=== PATIENT | male | born 1945 | race Two or more races ===

== ENCOUNTER 2024-04-30 10:01 | Outpatient (OUT) | payer MEDICARE, SELFPAY ==
[2024-04-30 10:54] LABS: Basophils Absolute Auto 0.1 10^3/uL (0.0-0.1); Basophils Percent Auto 0.7 % (0.2-2.0); Eosinophils Absolute Auto 0.1 10^3/uL (0.0-0.7); Eosinophils Percent Auto 1.5 % (0.9-7.0); Hematocrit 41.2 % (42.0-54.0); Hemoglobin 13.4 g/dL (14.0-18.0); Immature Granulocytes Abs Auto 0.01 10^3/uL (0.00-0.03); Immature Granulocytes Pct Auto 0.1 % (0.0-0.5); Lymphocytes Absolute Auto 1.8 10^3/uL (1.2-3.8); Lymphocytes Percent Auto 27.5 % (20.5-60.0); Mean Corpuscular HGB Conc 32.5 g/dL (29.9-35.2); Mean Corpuscular Hemoglobin 28.2 pg (25.9-34.0); Mean Corpuscular Volume 86.7 fL (80.0-94.0); Monocytes Absolute Auto 0.6 10^3/uL (0.3-0.8); Monocytes Percent Auto 8.2 % (1.7-12.0); Neutrophils Absolute Auto 4.1 10^3/uL (1.4-6.5); Platelet Count 380 10^3/uL (150-450); Red Blood Count 4.75 10^6/uL (4.70-6.10); Red Cell Distribution Width 12.7 % (11.0-15.0); White Blood Count 6.7 10^3/uL (4.0-11.0)
[2024-04-30 11:10] LABS: Estimated Average Glucose 163 mg/dL; Glycohemoglobin A1C 7.3 % (4.5-6.2)
[2024-04-30 11:59] LABS: Alanine Aminotransferase 22 U/L (16-63); Albumin Globulin Ratio 1.2; Albumin Level 4.3 g/dL (3.4-5.0); Alkaline Phosphatase 73 U/L (46-116); Anion Gap 9.7; Aspartate Amino Transferase 18 U/L (15-37); BUN Creatinine Ratio 19.2; Calcium 9.4 mg/dL (8.5-10.1); Carbon Dioxide 32.3 mmol/L (21.0-32.0); Chloride 102 mmol/L (98-107); Chol HDL Ratio 2.6; Cholesterol 166 mg/dL (<=200); Estimated GFR (African America >60 (>=60 mL/min/1.73m^2); Estimated GFR (Non-African Ame >60 (>=60 mL/min/1.73m^2); Free T3 2.37 pg/mL (2.18-3.98); Globulin 3.7 g/dL; Glucose 102 mg/dL (74-106); HDL Cholesterol 63 mg/dL (40-60); Sodium 140 mmol/L (136-145); Thyroid Stimulating Hormone 1.103 uIU/mL (0.358-3.740); Triglycerides 138 mg/dL (<=150); VLDL CHOLESTEROL 27.6 mg/dL
[2024-04-30 12:05] LABS: Prostate Specific Antigen Scrn 1.51 ng/mL (<=4.00)
== END 2024-04-30 10:02 | disposition home or self-care (01) ==
LOC: LAB 10:08
PROVIDERS: PCP Family Medicine; Visit Provider Family Medicine
DX: E78.5 Hyperlipidemia, unspecified (principal); I10 Essential (primary) hypertension; E11.65 Type 2 diabetes mellitus with hyperglycemia; Z12.5 Encounter for screening for malignant neoplasm of prostate; D64.9 Anemia, unspecified; Z79.899 Other long term (current) drug therapy
CPT/HCPCS: 36415; 80053; 80061; 83036; 84436; 84443; 84481; 85025; G0103

== ENCOUNTER 2024-07-21 09:17 | Outpatient (OUT) | payer MEDICARE, SELFPAY | END 2024-07-21 09:18 | disposition home or self-care (01) | LOC: PST 09:17 | PROVIDERS: PCP Family Medicine; Visit Provider Surgery | DX: Z01.818 Encounter for other preprocedural examination (principal); Z12.11 Encounter for screening for malignant neoplasm of colon ==

== ENCOUNTER 2024-07-29 06:33 | Day surgery (SDC) | payer MEDICARE, SELFPAY ==
--- NOTE | 2024-07-29 | OP_ITS ---
OPERATION DATE: 07/29/2024 PREOPERATIVE DIAGNOSIS: Colorectal screening. POSTOPERATIVE DIAGNOSIS: Diffuse diverticulosis throughout the colon, moderate. PROCEDURE: Colonoscopy to cecum. SURGEON: Aguila Nash M.D. ANESTHESIA: Monitored anesthesia care. ESTIMATED BLOOD LOSS: Zero. INDICATIONS AND CONSENT: Patient is a 79-year-old male, presents for colorectal screening. Indications, risks, benefits, alternatives of proceeding with colonoscopy were explained extensively to the patient, including the risks of bleeding, colon perforation or anesthetic complications. All of his questions were answered. Informed consent was obtained. PROCEDURE: Patient brought to the operating room, placed in the left lateral decubitus position. Monitored anesthesia care was provided. Rectal exam was performed which showed no masses or blood. The scope was inserted into the anal canal. Under direct visualization was advanced. With the aid of abdominal compression, it was advanced to the cecum where cecal markings were clearly identified. There was noted to be a good prep. Upon withdrawal of the scope, mucosal surfaces were carefully examined. There were no mass lesions or polyps. No inflammatory changes or ulcerations. There was moderate diverticulosis throughout the colon, including the cecum and right colon, without inflammatory changes or scarring. The scope was retroflexed in the anal canal. There was no significant hemorrhoidal disease. Scope was then withdrawn. Patient tolerated procedure well, was sent to recovery room in good condition. Patient should not require further colorectal screening. CC: Ke Salinas M.D. EMILY
--- OUTSIDE RECORDS SUMMARY | 2024-07-29 06:37 | XMS_ITS | CCD ---
Author Organization [facility] Care Team Providers Care Quick Print Operator Name Role Phone Mary Zenon Unavailable Breana Salinsa Primary Care Unavailable Olexa, Zenon Attending Unavailable Olexa, Zenon Admitting Unavailable Olexa, Zenon Attending Unavailable Breana Salinas Primary Care Unavailable Olexa, Zenon Admitting Unavailable Breana Salinas Primary Care Unavailable Olexa, Zenon Admitting Unavailable Olexa, Zenon Attending Unavailable HOY ., DR TOUSSAINT Attending Unavailable HOY ., DR TOUSSAINT Admitting Unavailable HOY ., DR TOUSSAINT Primary Care Unavailable HOY ., DR TOUSSAINT Consulting Unavailable HOY ., DR TOUSSAINT Admitting Unavailable HOY ., DR TOUSSAINT Primary Care Unavailable HOY ., DR TOUSSAINT Consulting Unavailable HOY ., DR TOUSSAINT Attending Unavailable PARKLAguila Attending Unavailable Breana Salinas Referring Unavailable PARKLAguila Attending Unavailable Breana Salinas Referring Unavailable Allergies Allergy Classification Reported Allergen(s) Allergy Type Date of Onset Reaction(s) Facility (1 source) No Known Medication Allergies; Translations: [No Known Medication Allergies] Propensity to adverse reactions (disorder) [facility] Repository Medications Current Medications Medication Drug Class(es) Dates Sig (Normalized) Sig (Original) acetaminophen 325 mg / HYDROcodone bitartrate 5 mg oral tablet (3 sources) Opioid Agonist Start: 05-29-2021 take 1 tablet by mouth every four hours as needed for pain HYDROcodone-Aceta minophen 5-325 MG 1 tablet as needed for pain Orally up to every 4 hrs for 5 days May, Active amLODIPine (3 sources) Dihydropyridine Calcium Channel Kenny amLODIPine Besylate Active atorvastatin (3 sources) HMG-CoA Reductase Inhibitor Atorvastatin Calcium Active glipiZIDE 10 mg oral tablet (3 sources) Sulfonylurea take 1 tablet by mouth once daily 30 minutes before breakfast glipiZIDE 10 MG 1 tablet 30 minutes before breakfast Orally Once a day Active metFORMIN (3 sources) Biguanide metFORMIN HCl Active Problems Active Problems Problem Classification Problem Date Documented Date Episodic/Chronic Deficiency and other anemia (1 source) Anemia, unspecified; Translations: [ANEMIA UNSPECIFIED] Onset: 07-26-2022 Episodic Diabetes mellitus with complications (1 source) Type 2 diabetes mellitus with hyperglycemia; Translations: [TYPE 2 DM W/HYPERGLYCEMIA] Onset: 07-26-2022 Chronic Diabetes mellitus without complication (1 source) Other abnormal glucose; Translations: [OTHER ABNORMAL GLUCOSE] Onset: 07-26-2022 Episodic Disorders of lipid metabolism (4 sources) Hyperlipidemia, unspecified; Translations: [HYPERLIPIDEMIA UNSPECIFIED] Onset: 07-20-2022 Chronic Essential hypertension (1 source) Essential (primary) hypertension; Translations: [ESSENTIAL PRIMARY HYPERTENSION] Onset: 07-26-2022 Chronic Other nervous system disorders (5 sources) Lesion of ulnar nerve, left upper limb; Translations: [Cubital tunnel syndrome on left] Onset: 06-13-2021 Resolved: 07-11-2021 Chronic Other screening for suspected conditions (not mental disorders or infectious disease) (6 sources) Encounter for screening for malignant neoplasm of rectum; Translations: [Encounter for screening for malignant neoplasm of prostate] Onset: 07-21-2022 Episodic Unclassified (1 source) G56.22 - Lesion of ulnar nerve, left upper limb; Translations: [G56.22 - Lesion of ulnar nerve, left upper limb] Onset: 05-31-2021 Unclassified (1 source) Z01.812 - Encounter for preprocedural laboratory examination; Translations: [Z01.812 - Encounter for preprocedural laboratory examination] Onset: 05-29-2021 Past or Other Problems Problem Classification Problem Date Documented Date Episodic/Chronic Other nervous system disorders (1 source) Anesthesia of skin; Translations: [R20.0 - Anesthesia of skin] Onset: 05-31-2021 Episodic Other nervous system disorders (1 source) Paresthesia of skin; Translations: [R20.2 - Paresthesia of skin] Onset: 05-31-2021 Episodic Residual codes; unclassified (3 sources) Other specified postprocedural states Onset: 05-29-2021 Resolved: 07-11-2021 Episodic Results Test Name Value Interpretation Reference Range Facility Ambulatory Visit Summaryon 0 07-14-2024 Ambulatory Visit Summary Ambulatory Visit Summary CHARANJIT RUSSELL :1945 Visit Date:07/14/2024 Ambulatory Visit Instructions Your Diagnosis Screening for malignant neoplasm of colon Your Care Team Attending Physician - MICHELLE PITT, Aguila Acuña Primary Care Physician - Breana Salinas MD Referring Physician - Breana Salinas MD This Is Your Medications List Contact prescribing physician if questions or concerns amlodipine (amLODIPine 5 mg Tab) aspirin (aspirin 81 mg Chew Tab) atorvastatin (atorvastatin 10 mg Tab) ergocalciferol (Vitamin D2 2000 intl units oral capsule) glipiZIDE (glipiZIDE 10 mg Tab) lisinopril (lisinopril 20 mg Tab) metformin (metformin 500 mg Tab) pioglitazone (Actos 30 mg Tab) Procedures Performed Colonoscopy (07/2010), Colonoscopy, Cubital tunnel release. Discharge Vitals Heart Rate (Peripheral) 64 Respiratory Rate 16 Blood Pressure 164/69 Height 162 cm Height 64 in Weight 69.7 kg Weight 153.662 lb BMI 26.56 Medications What How Much When Instructions Unchanged amlodipine (amLODIPine 5 mg Tab) 1 Tablets By Mouth 2 times a day Contact prescribing physician if questions or concerns Unchanged aspirin (aspirin 81 mg Chew Tab) 1 Tablets Chewed Every day Contact prescribing physician if questions or concerns Unchanged atorvastatin (atorvastatin 10 mg Tab) 1 Tablets By Mouth Every day Contact prescribing physician if questions or concerns Unchanged ergocalciferol (Vitamin D2 2000 intl units oral capsule) 1 Capsules By Mouth Every day Contact prescribing physician if questions or concerns Unchanged glipiZIDE (glipiZIDE 10 mg Tab) 1 Tablets By Mouth Every day Contact prescribing physician if questions or concerns Unchanged lisinopril (lisinopril 20 mg Tab) 1 Tablets By Mouth Every day Contact prescribing physician if questions or concerns Unchanged metformin (metformin 500 mg Tab) 1 Tablets By Mouth 2 times a day Contact prescribing physician if questions or concerns Unchanged pioglitazone (Actos 30 mg Tab) 1 Tablets By Mouth Every day Contact prescribing physician if questions or concerns Allergies No Known Allergies No Known Medication Allergies Problems Ongoing - Any problem that you are currently receiving treatment for. Anemia BMI 26.0-26.9,adult Diabetes Essential hypertension History of colon polyps History of nephrolithiasis Hyperlipidemia Overweight Screening for malignant neoplasm of colon TIA (transient ischemic attack) Patient Survey You may receive a survey via text or e-mail asking about your office visit. Please share your experience with us by completing your survey. We appreciate your feedback and thank you for choosing us for your care. [facility] Ambulatory Visit Summary Ambulatory Visit Summary CHARANJIT RUSSELL :1945 Visit Date:07/14/2024 Ambulatory Visit Instructions Your Care Team Attending Physician - MICHELLE PITT, Aguila Acuña Primary Care Physician - Breana Salinas MD Referring Physician - Breana Salinas MD This Is Your Medications List Contact prescribing physician if questions or concerns amlodipine (amLODIPine 5 mg Tab) aspirin (aspirin 81 mg Chew Tab) atorvastatin (atorvastatin 10 mg Tab) ergocalciferol (Vitamin D2 2000 intl units oral capsule) glipiZIDE (glipiZIDE 10 mg Tab) lisinopril (lisinopril 20 mg Tab) metformin (metformin 500 mg Tab) pioglitazone (Actos 30 mg Tab) Procedures Performed Colonoscopy (07/2010), Colonoscopy, Cubital tunnel release. Discharge Vitals Heart Rate (Peripheral) 64 Respiratory Rate 16 Blood Pressure 164/69 Height 162 cm Height 64 in Weight 69.7 kg Weight 153.662 lb BMI 26.56 Medications What How Much When Instructions Unchanged amlodipine (amLODIPine 5 mg Tab) 1 Tablets By Mouth 2 times a day Contact prescribing physician if questions or concerns Unchanged aspirin (aspirin 81 mg Chew Tab) 1 Tablets Chewed Every day Contact prescribing physician if questions or concerns Unchanged atorvastatin (atorvastatin 10 mg Tab) 1 Tablets By Mouth Every day Contact prescribing physician if questions or concerns Unchanged ergocalciferol (Vitamin D2 2000 intl units oral capsule) 1 Capsules By Mouth Every day Contact prescribing physician if questions or concerns Unchanged glipiZIDE (glipiZIDE 10 mg Tab) 1 Tablets By Mouth Every day Contact prescribing physician if questions or concerns Unchanged lisinopril (lisinopril 20 mg Tab) 1 Tablets By Mouth Every day Contact prescribing physician if questions or concerns Unchanged metformin (metformin 500 mg Tab) 1 Tablets By Mouth 2 times a day Contact prescribing physician if questions or concerns Unchanged pioglitazone (Actos 30 mg Tab) 1 Tablets By Mouth Every day Contact prescribing physician if questions or concerns Allergies No Known Allergies No Known Medication Allergies Problems Ongoing - Any problem that you are currently receiving treatment for. Anemia BMI 26.0-26.9,adult Diabetes Essential hypertension History of colon polyps History of nephrolithiasis Hyperlipidemia Overweight TIA (transient ischemic attack) Patient Survey You may receive a survey via text or e-mail asking about your office visit. Please share your experience with us by completing your survey. We appreciate your feedback and thank you for choosing us for your care. Normal [facility] OCC BLD IMMUNO SCREENon 05-0 OCCULT BLOOD Negative Normal NEGATIVE [facility] Comment on above: Performed By: #### O BSCRN #### [facility] [address] [place] [address] Dr. Gita Buchanan CBC AUTO DIFFon 07-20-2022 BASO # 0.1 103/ul Normal 0.0-0.1 [facility] Comment on above: Performed By: #### C BC #### [facility] [address] [place] [address] Dr. Gita Buchanan Basophils/100 WBC (Bld) 0.7 % Normal 0.2-2.0 [facility] Comment on above: Performed By: #### C BC #### [facility] [address] [place] [address] Dr. Gita Buchanan EO # 0.1 103/ul Normal 0.0-0.7 [facility] Comment on above: Performed By: #### C BC #### [facility] [address] [place] [address] Dr. Gita Buchanan Eosinophils/100 WBC (Bld) 1.6 % Normal 0.9-7.0 [facility] Comment on above: Performed By: #### C BC #### [facility] [address] [place] [address] Dr. Gita Buchanan Erythrocyte distribution width (RBC) [Ratio] 12.7 % Normal 11.0-15.0 [facility] Comment on above: Performed By: #### C BC #### [facility] [address] [place] [address] Dr. Gita Buchanan Hematocrit (Bld) [Volume fraction] 41.1 % Critically low 42.0-54.0 [facility] Comment on above: Performed By: #### C BC #### [facility] [address] [place] [address] Dr. Gita Buchanan Hemoglobin (Bld) [Mass/Vol] 13.3 g/dL Critically low 14.0-18.0 [facility] Comment on above: Performed By: #### C BC #### [facility] [address] [place] [address] Dr. Gita Buchanan IG # 0.01 10e3/ul Normal 0.00-0.03 [facility] Comment on above: Performed By: #### C BC #### [facility] [address] [place] [address] Dr. Gita Buchanan IG % 0.1 % Normal 0.0-0.5 [facility] Comment on above: Performed By: #### C BC #### [facility] [address] [place] [address] Dr. Gita Buchanan LYMPH # 1.6 103/ul Normal 1.2-3.8 [facility] Comment on above: Performed By: #### C BC #### [facility] [address] [place] [address] Dr. Gita Buchanan Lymphocytes/100 WBC (Bld) 23.9 % Normal 20.5-60.0 [facility] Comment on above: Performed By: #### C BC #### [facility] [address] [place] [address] Dr. Gita Buchanan MANUAL DIFF REQ NO Normal [facility] Comment on above: Performed By: #### C BC #### [facility] [address] [place] [address] Dr. Gita Buchanan MCH (RBC) [Entitic mass] 27.4 pg Normal 25.9-34.0 [facility] Comment on above: Performed By: #### C BC #### [facility] [address] [place] [address] Dr. Gita Buchanan MCHC (RBC) [Mass/Vol] 32.4 g/dL Normal 29.9-35.2 [facility] Comment on above: Performed By: #### C BC #### [facility] [address] [place], [place] [id number] Dr. Gita Buchanan MCV (RBC) [Entitic vol] 84.7 fL Normal 80.0-94.0 [facility] Comment on above: Performed By: #### C BC #### [facility] [address] [place] [address] Dr. Gita Buchanan MONO # 0.6 103/ul Normal 0.3-0.8 [facility] Comment on above: Performed By: #### C BC #### [facility] [address] [place] [address] Dr. Gita Buchanan Monocytes/100 WBC (Bld) 9.5 % Normal 1.7-12.0 [facility] Comment on above: Performed By: #### C BC #### [facility] [address] [place] [address] Dr. Gita Buchanan NEUT # 4.3 103/ul Normal 1.4-6.5 [facility] Comment on above: Performed By: #### C BC #### [facility] [address] [place] [address] Dr. Gita Buchanan Neutrophils/100 WBC (Bld) 64.2 % Normal 43.0-75.0 [facility] Comment on above: Performed By: #### C BC #### [facility] [address] [place] [address] Dr. Gita Buchanan Platelet mean volume (Bld) [Entitic vol] 9.0 fL Critically low 9.5-13.5 [facility] Comment on above: Performed By: #### C BC #### [facility] [address] [place] [address] Dr. Gita Buchanan PLT 285 103/ul Normal 150-450 [facility] Comment on above: Performed By: #### C BC #### [facility] [address] [place] [address] Dr. Gita Buchanan RBC 4.85 106/ul Normal 4.70-6.10 [facility] Comment on above: Performed By: #### C BC #### [facility] [address] [place] [address] Dr. Gita Buchanan WBC 6.8 103/ul Normal 4.0-11.0 [facility] Comment on above: Performed By: #### C BC #### [facility] [address] [place] [address] Dr. Gita Buchanan FREE THYROXINE INDEX T7on FTI 2.64 Normal 1.30-4.50 [facility] Comment on above: Performed By: #### L IPID, URIC, T7, TSH, CMP #### [facility] [address] [address] [address] Gita Buchanan T3U 33.0 % Normal 33.0-40.0 [facility] Comment on above: Performed By: #### L IPID, URIC, T7, TSH, CMP #### [facility] [address] [place] [address] Dr. Gita Buchanan T4 [Mass/Vol] 8.00 ug/dL Normal 4.50-12.10 [facility] Comment on above: Performed By: #### L IPID, URIC, T7, TSH, CMP #### [facility] [address] [place] [address] Dr. Gita Buchanan GLYCOHEMOGLOBIN A1Con 2022 ADA RECOMMENDATION SEE BELOW Normal [facility] Comment on above: Result Comment: ADA RECOMMENDED LIMIT 4.0 - 6.0 ADA THERAPEUTIC TARGET < 7.0 ACTION SUGGESTED > 7.0 Performed By: #### A 1C #### [facility] [address] [place] [address] Dr. Gita Buchanan Glucose [Mass/Vol] 169 mg/dL Normal [facility] Comment on above: Performed By: #### A 1C #### [facility] [address] [place] [address] Dr. Gita Buchanan HbA1c (Bld) [Mass fraction] 7.5 % Critically high 4.5-6.2 [facility] Comment on above: Performed By: #### A 1C #### [facility] [address] [place] [address] Dr. Gita Buchanan LIPID PROFILEon 07-20-2022 CHOL-HDL RATIO NORM SEE BELOW Normal [facility] Comment on above: Result Comment: 3.3 - 4.4 LOW RISK 4.4 - 7.1 AVERAGE RISK 7.1 - 11.0 MODERATE RISK >11.0 HIGH RISK Performed By: #### L IPID, URIC, T7, TSH, CMP #### [facility] [address] [address] [address] Gita Buchanan Cholesterol [Mass/Vol] 178 mg/dL Normal <=200 [facility] Comment on above: Performed By: #### L IPID, URIC, T7, TSH, CMP #### [facility] [address] [address] [address] Gita Buchanan Cholesterol in HDL [Mass/Vol] 62 mg/dL Critically high 40-60 [facility] Comment on above: Performed By: #### L IPID, URIC, T7, TSH, CMP #### [facility] [address] [place] [address] Dr. Gita Buchanan Cholesterol in LDL [Mass/Vol] 93.0 mg/dL Normal [facility] Comment on above: Performed By: #### L IPID, URIC, T7, TSH, CMP #### [facility] [address] [address] [address] Gita Buchanan Cholesterol.total/Cho lesterol in HDL [Mass ratio] 2.9 {ratio} Normal [facility] Comment on above: Performed By: #### L IPID, URIC, T7, TSH, CMP #### [facility] [address] [address] [address] Gita Buchanan HDL NORMAL > or = 60 mg/dl - LOW CARDIOVASCULAR RISK <40 mg/dl - HIGH CARDIOVASCULAR RISK Normal [facility] Comment on above: Performed By: #### L IPID, URIC, T7, TSH, CMP #### [facility] [address] [place] [address] Dr. Gita Buchanan LDL CALC NORMAL SEE BELOW Normal [facility] Comment on above: Result Comment: <100 mg/dl OPTIMAL 100 - 129 mg/dl NEAR OR ABOVE OPTIMAL 130 - 159 mg/dl BORDERLINE HIGH 160 - 189 mg/dl HIGH >190 mg/dl VERY HIGH Performed By: #### L IPID, URIC, T7, TSH, CMP #### [facility] [address] [place] [address] Dr. Gita Buchanan Triglyceride [Mass/Vol] 115 mg/dL Normal <=150 [facility] Comment on above: Performed By: #### L IPID, URIC, T7, TSH, CMP #### [facility] [address] [place] [address] Dr. Gita Buchanan VLDL CALC 23.0 mg/dL Normal [facility] Comment on above: Performed By: #### L IPID, URIC, T7, TSH, CMP #### [facility] [address] [place] [address] Dr. Gita Buchanan PROF 14(COMP METB)on 023 Albumin [Mass/Vol] 4.2 g/dL Normal 3.4-5.0 [facility] Comment on above: Performed By: #### L IPID, URIC, T7, TSH, CMP #### [facility] [address] [place] [address] Dr. Gita Buchanan Albumin/Globulin [Mass ratio] 1.1 {ratio} Normal [facility] Comment on above: Performed By: #### L IPID, URIC, T7, TSH, CMP #### [facility] [address] [place] [address] Dr. Gita Buchanan ALP [Catalytic activity/Vol] 90 U/L Normal 46-116 [facility] Comment on above: Performed By: #### L IPID, URIC, T7, TSH, CMP #### [facility] [address] [place] [address] Dr. Gita Buchanan ALT [Catalytic activity/Vol] 22 U/L Normal 16-63 [facility] Comment on above: Performed By: #### L IPID, URIC, T7, TSH, CMP #### [facility] [address] [place] [address] Dr. Gita Buchanan Anion gap [Moles/Vol] 15.3 mmol/L Normal [facility] Comment on above: Performed By: #### L IPID, URIC, T7, TSH, CMP #### [facility] [address] [address] [address] Gita Buchanan AST [Catalytic activity/Vol] 17 U/L Normal 15-37 [facility] Comment on above: Performed By: #### L IPID, URIC, T7, TSH, CMP #### [facility] [address] [place] [address] Dr. Gita Buchanan Bilirubin [Mass/Vol] 1.2 mg/dL Critically high 0.2-1.0 [facility] Comment on above: Performed By: #### L IPID, URIC, T7, TSH, CMP #### [facility] [address] [place] [address] Dr. Gita Buchanan Calcium [Mass/Vol] 9.9 mg/dL Normal 8.5-10.1 [facility] Comment on above: Performed By: #### L IPID, URIC, T7, TSH, CMP #### [facility] [address] [place] [address] Dr. Gita Buhcanan Chloride [Moles/Vol] 102 mmol/L Normal 98-107 [facility] Comment on above: Performed By: #### L IPID, URIC, T7, TSH, CMP #### [facility] [address] [place] [address] Dr. Gita Buchanan CO2 [Moles/Vol] 27.8 mmol/L Normal 21.0-32.0 [facility] Comment on above: Performed By: #### L IPID, URIC, T7, TSH, CMP #### [facility] [address] [place] [address] Dr. Gita Buchanan Creatinine [Mass/Vol] 0.72 mg/dL Normal 0.70-1.30 [facility] Comment on above: Performed By: #### L IPID, URIC, T7, TSH, CMP #### [facility] [address] [place] [address] Dr. Gita Buchanan EGFR-AF ALGERIAN >60 Normal >=60 [facility] Comment on above: Performed By: #### L IPID, URIC, T7, TSH, CMP #### [facility] [address] [place] [address] Dr. Gita Buchanan EGFR-NON AF ALGERIAN >60 Normal >=60 [facility] Comment on above: Performed By: #### L IPID, URIC, T7, TSH, CMP #### [facility] [address] [address] [address] Gita Buchanan Globulin (S) [Mass/Vol] 3.7 g/dL Normal [facility] Comment on above: Performed By: #### L IPID, URIC, T7, TSH, CMP #### [facility] [address] [address] [address] Gita Buchanan Glucose [Mass/Vol] 94 mg/dL Normal 74-106 [facility] Comment on above: Performed By: #### L IPID, URIC, T7, TSH, CMP #### [facility] [address] [place] [address] Dr. Gita Buchanan Potassium [Moles/Vol] 4.1 mmol/L Normal 3.5-5.1 [facility] Comment on above: Performed By: #### L IPID, URIC, T7, TSH, CMP #### [facility] [address] [place] [address] Dr. Gita Buchanan Protein [Mass/Vol] 7.9 g/dL Normal 6.4-8.2 [facility] Comment on above: Performed By: #### L IPID, URIC, T7, TSH, CMP #### [facility] [address] [place] [address] Dr. Gita Buchanan Sodium [Moles/Vol] 141 mmol/L Normal 136-145 [facility] Comment on above: Performed By: #### L IPID, URIC, T7, TSH, CMP #### [facility] [address] [place] [address] Dr. Gita Buchanan Urea nitrogen [Mass/Vol] 17.0 mg/dL Normal 7.0-18.0 [facility] Comment on above: Performed By: #### L IPID, URIC, T7, TSH, CMP #### [facility] [address] [place] [address] Dr. Gita Buchanan Urea nitrogen/Creatinine [Mass ratio] 23.6 mg/mg Normal [facility] Comment on above: Performed By: #### L IPID, URIC, T7, TSH, CMP #### [facility] [address] [address] [address] Gita Buchanan TSHon 07-20-2022 TSH 1.591 uIU/mL Normal 0.358-3.740 [facility] Comment on above: Performed By: #### L IPID, URIC, T7, TSH, CMP #### [facility] [address] [address] [address] Gita Buchanan URIC ACID SERUMon 07-20-2022 Urate [Mass/Vol] 4.6 mg/dL Normal 3.5-7.2 [facility] Comment on above: Performed By: #### L IPID, URIC, T7, TSH, CMP #### [facility] [address] [address] [address] Gita Buchanan Glucose Poct Glucometerson 0 05-31-2021 Commemt1 Glu2: Cleaned Meter Normal [facility] Comment on above: Result Comment: PERF ORMED BY: [facility] [address] [place] [address] PATHOLOGIST [employer] GRINDER TEQUILA CARTAGENA M.D. Performed By: #### G LULS #### Point of Care testing , Glucose [Mass/Vol] 120 mg/dL Normal [facility] Comment on above: Result Comment: [facility] Glucose Reference Range is dependent on time and content of last meal. Glucose of more than 200 mg/dL in a nonstressed, ambulatory subject supports the diagnosis of Diabetes Mellitus. Performed By: #### G LULS #### Point of Care testing , COVID-19 FRon 05-29-2021 SARS-CoV-2 (COVID-19) RNA ELVIS+probe Ql (Unsp spec) Negative Normal Negative [facility] Comment on above: Order Comment: Healt hcare Worker?: N Result Comment: Testing for SARS-CoV-2 by RT-PCR This test was developed and its performance characteristics determined by [employer] [facility] and validated at the [facility]. This test has not been FDA cleared or approved. This test has been authorized by FDA under an Emergency Use Authorization (EUA). This test has been validated in accordance with the FDA's Guidance Document (Policy for Diagnostics Testing in Laboratories Certified to Perform High Complexity Testing under CLIA prior to Emergency Use Authorization for Coronavirus Disease-2019 during the Public Health Emergency) issued on June 18, 2019. This test is only authorized for the duration of time the declaration that circumstances exist justifying the authorization of the emergency use of in vitro diagnostic tests for detection of SARS-CoV-2 virus and/or diagnosis of COVID-19 infection under section 564(b)(1) of the Act, 21 U.S.C. 360bbb-3(b)(1), unless the authorization is terminated or revoked sooner. PERFORMED BY: [place] [address] PATHOLOGIST [employer] GR[employer] TEQUILA CARTAGENA M.D. Performed By: #### C OVID 19 [facility] #### [address] Complete Blood Count Auto Di ffon 05-24-2021 Basophils (Bld) [#/Vol] 0.1 10*3/uL Normal 0.0-0.2 [facility] Comment on above: Result Comment: PERF ORMED BY: [place] [address] PATHOLOGIST [employer] TEQUILA CARTAGENA M.D. Performed By: #### C BC, CMP #### [address] Basophils/100 WBC (Bld) 1.2 % Normal . [facility] Comment on above: Performed By: #### C BC, CMP #### [address] Eosinophils (Bld) [#/Vol] 0.2 10*3/uL Normal 0.0-0.45 [facility] Comment on above: Performed By: #### C BC, CMP #### [address] Eosinophils/100 WBC (Bld) 4.0 % Normal . [facility] Comment on above: Performed By: #### C BC, CMP #### [facility] [address] Erythrocyte distribution width (RBC) [Ratio] 13.5 % Normal 12.0-14.8 [facility] Comment on above: Performed By: #### C BC, CMP #### [facility] [address] Hematocrit (Bld) [Volume fraction] 41.7 % Normal 38.8-50.0 [facility] Comment on above: Performed By: #### C BC, CMP #### [facility] [address] Hemoglobin (Bld) [Mass/Vol] 13.9 g/dL Normal 13.0-17.0 [facility] Comment on above: Performed By: #### C BC, CMP #### [address] Lymphocytes (Bld) [#/Vol] 2.0 10*3/uL Normal 1.00-4.8 [facility] Comment on above: Performed By: #### C BC, CMP #### [address] Lymphocytes/100 WBC (Bld) 32.8 % Normal . [facility] Comment on above: Performed By: #### C BC, CMP #### [address] MCH (RBC) [Entitic mass] 28.3 pg Normal 27.5-35.2 [facility] Comment on above: Performed By: #### C BC, CMP #### [address] MCV (RBC) [Entitic vol] 84.7 fL Normal 83.5-101 [facility] Comment on above: Performed By: #### C BC, CMP #### [address] Mean Corpuscular HGB Conc 33.4 g/dL Normal 32.5-35.6 [facility] Comment on above: Performed By: #### C BC, CMP #### [facility] [address] [place] [address] [place] Monocytes (Bld) [#/Vol] 0.6 10*3/uL Normal 0.0-0.8 [facility] Comment on above: Performed By: #### C BC, CMP #### [facility] [address] [id number] [place] Monocytes/100 WBC (Bld) 10.4 % Normal . [facility] Comment on above: Performed By: #### C BC, CMP #### [facility] [address] [place] [address] [place] Neutrophils (Bld) [#/Vol] 3.2 10*3/uL Normal 1.8-7.7 [facility] Comment on above: Performed By: #### C BC, CMP #### [facility] [address] [place] [address] [place] Neutrophils/100 WBC (Bld) 51.6 % Normal . [facility] Comment on above: Performed By: #### C BC, CMP #### [facility] [address] [place] [address] [place] Nucleated RBC/100 WBC (Bld) [Ratio] 0.5 % Normal 0-0.5 [facility] Comment on above: Performed By: #### C BC, CMP #### [facility] [address] [place] [address] [place] Platelet mean volume (Bld) [Entitic vol] 7.4 fL Normal 6.6-10.1 [facility] Comment on above: Performed By: #### C BC, CMP #### [facility] [address] [id number] [place] Platelets (Bld) [#/Vol] 322 10*3/uL Normal 150-450 [facility] Comment on above: Performed By: #### C BC, CMP #### [facility] [address] [id number] [place] RBC (Bld) [#/Vol] 4.93 10*6/uL Normal 3.90-5.60 [facility] Comment on above: Performed By: #### C BC, CMP #### [facility] [address] WBC (Bld) [#/Vol] 6.1 10*3/uL Normal 4.5-11.0 [facility] Comment on above: Performed By: #### C BC, CMP #### [facility] [address] Comprehensive Metabolic Pane emerita 05-24-2021 Albumin [Mass/Vol] 4.4 g/dL Normal 3.2-5.5 [facility] Comment on above: Performed By: #### C BC, CMP #### [address] Albumin/Globulin [Mass ratio] 1.5 {ratio} Normal [facility] Comment on above: Performed By: #### C BC, CMP #### [address] ALP [Catalytic activity/Vol] 61 U/L Normal 32-92 [facility] Comment on above: Result Comment: PERF ORMED BY: [place] [address] PATHOLOGIST [employer] TEQUILA CARTAGENA M.D. Performed By: #### C BC, CMP #### [address] ALT [Catalytic activity/Vol] 21 U/L Normal 10-60 [facility] Comment on above: Performed By: #### C BC, CMP #### [address] [place] [id number] [facility] AST [Catalytic activity/Vol] 21 U/L Normal 10-42 [facility] Comment on above: Performed By: #### C BC, CMP #### [address] Bilirubin [Mass/Vol] 1.3 mg/dL High 0.3-1.2 [facility] Comment on above: Result Comment: Samp les from patients who have taken Naproxen have shown spurious elevation in Total Bilirubin levels. A metabolite of Naproxen, O-desmethylnaproxen, has been shown to interfere with the Jendrassik-Grof method for measuring Total Bilirubin. Performed By: #### C BC, CMP #### [address] Calcium [Mass/Vol] 10.0 mg/dL Normal 8.2-10.2 [facility] Comment on above: Performed By: #### C BC, CMP #### [address] Chloride [Moles/Vol] 99 mmol/L Normal 95-114 [facility] Comment on above: Performed By: #### C BC, CMP #### [address] CO2 [Moles/Vol] 23.5 mmol/L Normal 22.0-30.0 [facility] Comment on above: Performed By: #### C BC, CMP #### [address] Creatinine [Mass/Vol] 0.68 mg/dL Normal 0.64-1.27 [facility] Comment on above: Performed By: #### C BC, CMP #### [address] Estimated GFR ( Kalani > 60 [facility] Comment on above: Result Comment: GFR estimated reference range: According to KDOQI guidelines, <60 ml/min/1.73m2 is sufficient to diagnose a patient with chronic kidney disease. Performed By: #### C BC, CMP #### [address] Estimated GFR (Non- Am > 60 [facility] Comment on above: Performed By: #### C BC, CMP #### [address] Globulin (S) [Mass/Vol] 2.9 g/dL [facility] Comment on above: Performed By: #### C BC, CMP #### [place] [address] [facility] Glucose [Mass/Vol] 225 mg/dL High 70-100 [facility] Comment on above: Result Comment: [facility] Glucose Reference Range is dependent on time and content of last meal. Glucose of more than 200 mg/dL in a nonstressed, ambulatory subject supports the diagnosis of Diabetes Mellitus. ADA recommended reference range Performed By: #### C BC, CMP #### [facility] [address] Potassium [Moles/Vol] 3.8 mmol/L Normal 3.5-5.1 [facility] Comment on above: Performed By: #### C BC, CMP #### [facility] [address] Protein [Mass/Vol] 7.3 g/dL Normal 6.1-7.9 [facility] Comment on above: Performed By: #### C BC, CMP #### [facility] [address] [phone] [facility] Sodium [Moles/Vol] 134 mmol/L Low 136-146 [facility] Comment on above: Performed By: #### C BC, CMP #### [facility] [address] [phone] [facility] Urea nitrogen [Mass/Vol] 11 mg/dL Normal 9-23 [facility] Comment on above: Performed By: #### C BC, CMP #### [facility] [address] [phone] [facility] ECG 12 lead ECGon 05-24-2021 ECG 12 lead ECG [facility] [place] [address] [place] [address] Electrocardiograph Report Signed Patient: Charanjit Russell MR#: [id number] 5 : 1945 Acct:[id number] Age/Sex: 76 / M ADM Date: 05/24/21 Loc: PS Room: Type: [facility] Attending Dr: Zenon Hernandez MD Ordering Provider: Zenon Hernandez MD Date of Service: 05/24/2112/07/1628 ECG/ECG 12 lead ECG: LT CUBITAL TUNNEL RELEASE,POSS ULNAR NERVE TRANSPOSITION Copies to: Test Reason : Blood Pressure : / mmHG Vent. Rate : 088 BPM Atrial Rate : 088 BPM P-R Int : 164 ms QRS Dur : 084 ms QT Int : 358 ms P-R-T Axes : 033 013 045 degrees QTc Int : 433 ms Normal sinus rhythm Minimal voltage criteria for LVH, may be normal variant Nonspecific ST abnormality Abnormal ECG No previous ECGs available Confirmed by HERLINDA CELAYA DO ([id number]) on 05/26/2021 6:23:19 AM Referred By: EPI HERNANDEZ Electronically Signed By:HERLINDA CELAYA DO Transcribed By: MUS Signed By Herlinda Celaya DO 05/26 0623 Normal [facility] Vital Signs Date Time Vital Sign Value Performing Clinician Damir combs 06-13-2021 14:30-0400 Body height 160.02 cm Zenon Hernandez Other [facility] Other Encounters Encounter Date Encounter Type Care Provider Facility Start: 07-14-2024 End: 07-14-2024 ambulatory Aguila MARTINEZ Facility:[facility] Start: 07-21-2022 End: 07-21-[address] BREANA SALINAS . Facility: Start: 07-20-2022 End: 07-21-[address] BREANA SALINAS . Facility: Start: 07-11-2021 End: 07-11-2021 ambulatory Zenon Olefelisa Other [facility] Other Start: 07-11-2021 Postop follow up vis it related to original px Zenon Olexa [facility] Start: 06-13-2021 End: 06-13-2021 ambulatory Zenon Olefelisa Other [facility] Other Start: 06-13-2021 Postop follow up vis it related to original px Zenon Olexa [facility] Start: 05-31-2021 End: 05-31-2021 ambulatory Breana Salinas Facility:[facility] Start: 05-29-2021 End: 05-29-2021 ambulatory Zenon Olexa [employer] Other Start: 05-29-2021 Telephone encounter [facility]on [facility] Start: 05-24-2021 End: 05-24-2021 ambulatory Breana Salinas Facility:[facility] Procedures Date Procedure Procedure Detail Performing Clinician Start: 07-20-[address] PRIMO SALINAS . Comment on above: Performed By: #### [facility] #### [facility] [address] [place] [address] Dr. Gita Buchanan Payers Date Payer Category Payer Self-pay 2021 Unknown [id number] 1958 Medicare [id number] 2.1 [id number] 1958 Unknown [id number] 2.1 [id number] 1945 Unknown [id number] 2.16.84 [id number] 1945 Unknown [id number] 2.16.84 [id number] 1945 Unknown [id number] 2.16.8 [id number] 1945 Unknown [id number] 2.16.8 [id number] Unknown [id number] 2.16.8 [id number] Unknown [id number] 2.16.8 [id number] Unknown [id number] 2.16.8 [id number] Social History Date Type Detail Facility Sex Assigned At [facility] Other Clinical Note 07-14-2024 Note Date & Type Note Facility 07-14-2024 Note General Surgery Offi ce/Clinic Note Chief Complaint consultation for anemia HPI Staff 79 year old male presents on consultation from Dr. Salinas for anemia. Labs completed 04/30 with H/H 13.4 and 41.2. Denies dizziness, lightheadedness, SOB or fatigue. Denies abdominal or rectal pain. No rectal bleeding or change in bowel habits. Denies nausea, vomiting or weight loss. Last colonoscopy completed 07/2010- hyperplastic polyp. No known family history of colon cancer. History of Present Illness 79 yo male with h/o htn, hyperlipidemia, DMII, TIA, referred for colorectal screening, recently found to have mild anemia; denies change in bms, patient reports several year h/o intermittent rectal bleeding with bms, in toilet bowel and with wiping, no pain; no abd complaints; no abd operations; last documented colonoscopy 2010 with removal of small hyperplastic polyp from rectum; no abd operations; on baby asa daily, no NSAID use; no tobacco use, no fmhx of GI malignancy or IBD. Review of Systems PHQ Score Initial Depression Screen Score: 0 SCORE ROS - Provider Constitutional: no fever, no sweats, no weight loss. Eyes: no glasses, no blurred vision, no visual loss. ENMT: no dentures, no hoarseness, no swallowing difficulties, no hearing loss, no ear infection(s), no nose bleeds. Cardiovascular: normal blood pressure, no chest pain, regular heartbeat, no heart murmur. Respiratory: no shortness of breath, no cough, no asthma, no wheezing. Gastrointestinal: no nausea, no vomiting, no diarrhea, no constipation, no blood in stool, no change in bowel habits, no abdominal pain, no hepatitis. Genitourinary: no kidney stones, no urine infection, no dysuria. Musculoskeletal: no pain, no weakness. Skin: no changing moles, no rash, no skin lumps. Neurologic: no seizures, no epilepsy, no headache. Psychiatric: no emotional or psychiatric problem. Heme/Lymph: no bleeding problems, no anemia, no blood clots, no transfusions. Allergy/Immunologic: no swollen lymph nodes/glands, no IV drug abuse. Other: Additional ROS info: Except as noted in the above Review of Systems and in the History of Present Illness, all other systems have been reviewed and are negative or noncontributory. Physical Exam Vitals & Measurements HR: 64(Peripheral) RR: 16 BP: 164/69 HT: 162 cm HT: 64 in WT: 69.7 kg WT: 153.662 lb BMI: 26.56 HEENT: normal conjunctiva, sclera clear, no scleral icterus, EOM intact, PERRLA, oral mucosa moist without lesions. Neck: trachea midline, no mass, symmetric, no thyromegaly or nodules, no adenopathy Respiratory: lungs CTA, respirations non labored. Cardiovascular: regular rate and rhythm, no murmur, no pedal edema or varicosities. Gastrointestinal: soft, non distended, no tenderness, no masses, no palpable hernias, diastasis recti no, no hepatosplenomegaly; normal bs Lymphatic: no cervical adenopathy, no supraclavicular adenopathy. Musculoskeletal: normal gait, digits and nails without infection, nodes, cyanosis, clubbing. Skin: no rashes, no lesions, no ulcers, no subcutaneous nodules, induration. Psychiatric/Neuro: oriented to time, place, person, judgement normal, affect appropriate for age, insight intact, no focal deficits. Tests: labs reviewed, review of old records completed , Discussed surgical options, risks, and possible complications with patient. Assessment/Plan 1. Screening for malignant neoplasm of colon (Z12.11: Encounter for screening for malignant neoplasm of colon) plan colonoscopy under anesthesia, informed consent obtained. Follow-up No qualifying data available Problem List/Past Medical History Ongoing Anemia BMI 26.0-26.9,adult Diabetes Essential hypertension History of colon polyps History of nephrolithiasis Hyperlipidemia Overweight Screening for malignant neoplasm of colon TIA (transient ischemic attack) Historical No qualifying data Procedure/Surgical History Colonoscopy (07/2010), Colonoscopy, Cubital tunnel release. Medications Actos 30 mg Tab, 30 mg= 1 tab(s), Oral, Daily amLODIPine 5 mg Tab, 5 mg= 1 tab(s), Oral, BID aspirin 81 mg Chew Tab, 81 mg= 1 tab(s), Chewed, Daily atorvastatin 10 mg Tab, 10 mg= 1 tab(s), Oral, Daily glipiZIDE 10 mg Tab, 10 mg= 1 tab(s), Oral, Daily lisinopril 20 mg Tab, 20 mg= 1 tab(s), Oral, Daily metformin 500 mg Tab, 500 mg= 1 tab(s), Oral, BID Vitamin D2 2000 intl units oral capsule, 50 mcg= 1 cap(s), Oral, Daily Allergies No Known Allergies No Known Medication Allergies Social History Alcohol Never., 07/14/2024 Substance Abuse Never., 07/14/2024 Tobacco Never (less than 100 in lifetime) Tobacco Use:. Never Smokeless Tobacco Use:., 07/14/2024 Family History Diabetes mellitus type 2: Mother. Stroke: Father. [facility] Comment on above: Result Comment: Elec tronically Signed By: MICHELLE PITT, Aguila Oliveira\Date and Time Signed: 07/14/24 14:00 EDT Evaluation note 07-11-2021 Note Date & Type Note Facility 07-11-2021 Evaluation note Encounter Date Diagnosis Assessment Notes Jun, Cubital tunnel syndrome on left (ICD-10 - G56.22) Patient is progressing well from surgery. Instructed on massage at the area of the incision. Sensation should continue to improve over time. Progress activity as tolerated. Call with questions/conc erns Jun, Other specified postprocedural states (ICD-10 - Z98.890) [facility] Other Evaluation note 06-13-2021 Note Date & Type Note Facility 06-13-2021 Evaluation note Encounter Date Diagnosis Assessment Notes May, Cubital tunnel syndrome on left (ICD-10 - G56.22) May, Other specified postprocedural states (ICD-10 - Z98.890) Patient is progressing well from surgery. Instructed on gentle motion exercises. Call with questions/conc erns. [facility] Other Evaluation note 05-29-2021 Note Date & Type Note Facility 05-29-2021 Evaluation note Encounter Date Diagnosis Assessment Notes May, Other specified postprocedural states (ICD-10 - Z98.890) [facility] Other History general Narrative - Reported Note Date & Type Note Facility History general Narrative - Reported Type Medical History diabetes mallitus Medical History high blood pressure Medical History high cholesterol Surgical History kidney stone [facility] Other History general Narrative - Reported Note Date & Type Note Facility History general Narrative - Reported Type Medical History diabetes mallitus Medical History high blood pressure Medical History high cholesterol Surgical History kidney stone Surgical History left cubital tunnel release 202 [facility] Other Summary Purpose Family History No Family History Records FoundNo Family History Records FoundNo Family History Records Found Advance Directives No Advanced Directives Records FoundNo Advanced Directives Records FoundNo Advanced Directives Records Found Additional Source Comments REASON FOR VISIT (unrecogniz ed section and content) post op scriptsRecheck left Cubital TunnelRecheck left Cubital Tunnel (unrecognized sect ion and content) No Status Records FoundNo Status Records FoundNo Status Records Found INFORMATION SOURCE (unrecogn ized section and content) DATE CREATED AUTHOR 04/21/2022 [facility] DATE CREATED AUTHOR AUTHOR'S ORGANIZ ATION 07/27/2022 [facility] DATE CREATED AUTHOR AUTHOR'S ORGANIZ ATION 07/15/2024 [facility] FOR RECORDS PERTAINING TO PATIENTS WHO ARE OR HAVE BEEN ENROLLED IN A CHEMICAL DEPENDENCY/SUBSTANCEABUSE PROGRAM, SOME INFORMATION MAY BE OMITTED. This clinical summary was aggregated from multiple sources. Caution should be exercised in using it in the provision of clinical care. This summary normalizes information from multiple sources, and as a consequence, information in this document may materially change the coding, format and clinical context of patient data. In addition, data may be omitted in some cases. CLINICAL DECISIONS SHOULD BE BASED ON THE PRIMARY CLINICAL RECORDS. [facility] [employer] [facility]. provides no warranty or guarantee of the accuracy or completeness of information in this document.
[2024-07-29 07:19] VITALS: BP 181/90; PULSE 80; TEMP 36; O2SAT 99; BMI 25.1
[2024-07-29 07:25] LABS: Glucometer 166 mg/dL (74-106)
[2024-07-29] MEDS: 0.9 % SODIUM CHLORIDE 500 ML 50 ML IV (07:30)
[2024-07-29 07:40] VITALS: BP 177/87
[2024-07-29 08:09] VITALS: BP 137/83; PULSE 58; O2SAT 97
[2024-07-29 08:26] VITALS: BP 148/80; PULSE 57; O2SAT 98
== END 2024-07-29 08:41 | disposition home or self-care (01) ==
PROVIDERS: PCP Family Medicine; Visit Provider Surgery
PROC: (CPT G0121; principal; 2024-07-29 08:00)
DX: Z12.11 Encounter for screening for malignant neoplasm of colon (principal); K57.30 Diverticulosis of large intestine without perforation or abscess without bleeding; Z86.0100 Personal history of colon polyps, unspecified; I10 Essential (primary) hypertension; E78.5 Hyperlipidemia, unspecified; E11.9 Type 2 diabetes mellitus without complications; Z86.73 Personal history of transient ischemic attack (TIA), and cerebral infarction without residual deficits; Z79.84 Long term (current) use of oral hypoglycemic drugs
CPT/HCPCS: G0121; 36415; 82948; J2704